=== PATIENT | female | born 1990 | race Hispanic/Latino ===

== ENCOUNTER 2017-04-26 12:16 | Emergency (ER) | payer BC ==
[2017-04-26] MEDS ORDERED: Ibuprofen 800 MG TAB ONE (12:33)
== END 2017-04-26 12:40 | disposition home or self-care (01) ==
LOC: ERS 12:16
DX: B34.9 Viral infection, unspecified (principal)
CPT/HCPCS: 99283

== ENCOUNTER 2017-12-01 08:48 | Emergency (ER) | payer BC, SELFPAY ==
[2017-12-01 09:30] LABS: #Eosinphils 0.1 thou/uL (0.0-0.7); #Lymphocytes 1.8 thou/uL (1.20-3.40); #Monocytes 0.4 thou/uL (0.11-0.59); #Neutrophils 4.8 thou/uL (1.40-6.50); %Basophils 0.4 % (0.0-1.0); %Eosinophils 1.6 % (0.0-10.0); %Lymphocytes 25.6 % (21.0-51.0); %Monocytes 5.7 % (0.0-10.0); %Neutrophils 66.8 % (42.0-75.0); Hemoglobin 14.1 g/dL (12.0-16.0); Mean Corpuscular HGB CONC 33.9 g/dL (32.0-36.0); Mean Corpuscular Hemoglobin 29.9 pg (27.0-31.0); Mean Corpuscular Volume 88.2 fL (78.0-98.0); Mean Platelet Volume 7.5 fL (7.4-10.4); Platelet Count 201 thou/uL (130-400); RBC Distribution Width 13.1 % (11.5-14.5); Red Blood Cell (RBC) Count 4.72 mill/uL (4.20-5.40); White Blood Cell (WBC) Count 7.2 thou/uL (4.8-10.8)
[2017-12-01 10:02] LABS: Bilirubin Negative (Negative); Blood, Urine Large (Negative); Clarity CLOUDY (Clear); Glucose, Urine (Dipstick) Negative (Negative); Leukocyte Small (Negative); Nitrite Negative (Negative); Protein, Urine (Dipstick) Negative (Neg-Trace); Specific Gravity, Urine 1.022 (1.002-1.036)
[2017-12-01 10:04] LABS: Bacteria/HPF 1+ HPF (None Seen); Hyaline Casts/LPF 4-6 HYALINE CAST LPF (0-3 Hyaline); Pathc Cast-AUWi Flag 1.74 (0-2.49); WBC/HPF 0-3 HPF (0-3)
[2017-12-01 10:07] LABS: Yeast-AUWi Flag 152.9 (0-25.0)
[2017-12-01 10:11] LABS: Albumin 3.8 g/dL (3.5-5.0); Anion Gap 9 mmol/L (10-20); BUN (Urea Nitrogen) 7 mg/dL (7.0-18.7); Bilirubin, Total 0.4 mg/dL (0.2-1.2); Calc. Creatinine Clearance 0 mL/min (70-130); Calcium 8.9 mg/dL (7.8-10.44); Carbon Dioxide 28 mmol/L (22-29); Chloride 107 mmol/L (98-107); Estimated GFR-MDRD 85; Globulin 1.9 g/dL (2.4-3.5); Glucose 160 mg/dL (70-105); Potassium 4.1 mmol/L (3.5-5.1); Protein, Total 5.7 g/dL (6.0-8.3); Sodium 140 mmol/L (136-145)
[2017-12-01 10:12] LABS: ALT (SGPT) 43 U/L (8-55); AST (SGOT) 27 U/L (5-34); Alkaline Phosphatase 45 U/L (40-150)
[2017-12-01 10:24] LABS: RBC/HPF 0-3 HPF (0-3); Yeast-All Forms None Seen HPF (None Seen)
--- NOTE | 2017-12-01 13:21 | ULT ---
[facility] ULTRASOUND INCLUDING TRANSABDOMINAL AND TRANSVAGINAL AND VASCULAR DUPLEX WITH COLOR AND SPECTR AL DOPPLER IMAGING: HISTORY: A 27-year-old female with a history of vaginal bleeding. Positive home test. FINDINGS: The uterus measures 8 x 4.7 x 4.9 cm, with a 1.6 cm endometrium. No intrauterine gestational sac. The right kidney measures 2.2 x 2.4 x 2.8 cm. The left kidney measures 2.1 x 2.1 x 1.8 cm. Trace free fluid in the cul-de-sac. Vascular flow is d ocumented to both ovaries. No evidence for ovarian torsion. IMPRESSION: No evidence for an intrauterine gestational sac. No evidence for an extrauterine . Follow- up serum hCGs are recommended. If there is concern in the future in regards to an early , t hen, at that point, a follow-up ultrasound study might be considered. POS: [facility]
[2017-12-01 22:20] LABS: Chlamydia by PCR Not Detected (NotDetected); GC by PCR Not Detected (NotDetected)
== END 2017-12-01 12:15 | disposition home or self-care (01) ==
LOC: ERS 08:48
DX: O20.9 Hemorrhage in early pregnancy, unspecified (principal); O23.41 Unspecified infection of urinary tract in pregnancy, first trimester; Z3A.01 Less than 8 weeks gestation of pregnancy
CPT/HCPCS: 36415; 76856; 80053; 81003; 81015; 84702; 85025; 86900; 86901; 87480; 87491; 87510; 87591; 87660

== ENCOUNTER 2018-07-11 01:46 | Emergency (ER) | payer SELFPAY | END 2018-07-11 02:27 | disposition home or self-care (01) | LOC: ERS 01:46 | DX: J06.9 Acute upper respiratory infection, unspecified (principal) | CPT/HCPCS: 99283 ==

== ENCOUNTER 2019-02-26 03:29 | Emergency (ER) | payer SELFPAY ==
--- NOTE | 2019-02-26 08:00 | RAD ---
PA AND LATERAL VIEWS CHEST: HISTORY: Cough. FINDINGS: Comparison is made with the exam of 06/22/2015. The cardiomediastinum is normal. The lungs are expanded. The bony thorax is normal. IMPRESSION: Normal exam. POS: OFF
== END 2019-02-26 04:53 | disposition home or self-care (01) ==
LOC: ERS 03:29
DX: O99.89 Other specified diseases and conditions complicating pregnancy, childbirth and the puerperium (principal); R05 Cough; R09.81 Nasal congestion; Z3A.01 Less than 8 weeks gestation of pregnancy
CPT/HCPCS: 71046; 87804; 93005

== ENCOUNTER 2019-06-10 15:40 | Inpatient (IN) | payer OTHER ==
[2019-06-10 16:24] LABS: #Eosinphils 0.1 thou/uL (0.0-0.7); #Lymphocytes 1.7 thou/uL (1.20-3.40); #Monocytes 0.5 thou/uL (0.11-0.59); #Neutrophils 7.1 thou/uL (1.40-6.50); %Basophils 0.1 % (0.0-1.0); %Eosinophils 1.1 % (0.0-10.0); %Lymphocytes 17.6 % (21.0-51.0); %Neutrophils 76.2 % (42.0-75.0); Hemoglobin 11.8 g/dL (12.0-16.0); Mean Corpuscular HGB CONC 34.2 g/dL (32.0-36.0); Mean Corpuscular Hemoglobin 28.6 pg (27.0-31.0); Mean Corpuscular Volume 83.6 fL (78.0-98.0); Red Blood Cell (RBC) Count 4.14 mill/uL (4.20-5.40); White Blood Cell (WBC) Count 9.4 thou/uL (4.8-10.8)
[2019-06-10 16:42] LABS: Mean Platelet Volume 9.5 fL (7.4-10.4); Platelet Count 189 thou/uL (130-400)
[2019-06-10 16:46] LABS: ALT (SGPT) 31 U/L (8-55); AST (SGOT) 38 U/L (5-34); Albumin 3.6 g/dL (3.5-5.0); Alkaline Phosphatase 57 U/L (40-110); Anion Gap 15 mmol/L (10-20); BUN (Urea Nitrogen) 5 mg/dL (7.0-18.7); Bilirubin, Total 0.2 mg/dL (0.2-1.2); Calc. Creatinine Clearance 0 mL/min (70-130); Carbon Dioxide 18 mmol/L (22-29); Chloride 107 mmol/L (98-107); Estimated GFR-MDRD Greater than 90; Globulin 3.1 g/dL (2.4-3.5); Glucose 171 mg/dL (70-105); Lipase 13 U/L (8-78); Potassium 4.3 mmol/L (3.5-5.1); Protein, Total 6.7 g/dL (6.0-8.3); Sodium 136 mmol/L (136-145)
[2019-06-10 17:28] LABS: Bacteria/HPF None Seen HPF (None Seen); Bilirubin Negative (Negative); Blood, Urine Negative (Negative); Clarity Turbid (Clear); Glucose, Urine (Dipstick) Normal (Negative); Leukocyte 75 Leu/uL (Negative); Nitrite Negative (Negative); Protein, Urine (Dipstick) Negative (Neg-Trace); Urobilinogen Normal mg/dL (Less than 2); WBC/HPF 0-3 HPF (0-3)
[2019-06-10] MEDS ORDERED: Zolpidem Tartrate 5 MG TAB PO PRN (18:18)
[2019-06-10] MEDS ORDERED: Ondansetron PF 4 MG/2 ML Vial IVP PRN (18:18)
[2019-06-10] MEDS ORDERED: Acetaminophen 500 MG TAB PO PRN (18:18)
[2019-06-10] MEDS ORDERED: Promethazine HCl 25 MG/ML VIAL IM PRN (18:18)
[2019-06-10] MEDS ORDERED: Labetalol HCl 100 MG/20 ML VIAL ONE (18:20)
[2019-06-10] MEDS ORDERED: hydrALAZINE 20 MG/ML VIAL SLOW IVP PRN (18:22)
[2019-06-10] MEDS ORDERED: Labetalol HCl 100 MG/20 ML VIAL SLOW IVP PRN (18:22)
[2019-06-10 19:14] LABS: Amphetamine Not Detected (NotDetected); Barbiturates Screen Not Detected (NotDetected); Benzodiazepine Screen Not Detected (NotDetected); Cocaine Metabolite Screen Not Detected (NotDetected); Medtox Control Line Valid? VALID (VALID); Medtox Reader # READER 4; Methadone Not Detected (NotDetected); Methamphetamine Not Detected (NotDetected); Opiate Screen Not Detected (NotDetected); Oxycodone Screen Not Detected (NotDetected); Phencyclidine (PCP) Not Detected (NotDetected); THC/Cannabinoid Screen Not Detected (NotDetected); Tricyclic Screen Not Detected (NotDetected)
[2019-06-10] MEDS ORDERED: NIFEdipine XL 30 MG TAB PO SCH (19:30)
--- NOTE | 2019-06-10 19:31 | PDOC.LDHP ---
Labor and Delivery H&P Chief complaint: other (Elevated BP) HPI: 28 y/o at 21w2d who presented for LUQ discomfort. She was seen in the ED and cleared for the pain, however, she was noted to have persistently elevated BPs in the 180s-190s, and was treated with Labetalol 20mg. She reports the LUQ discomfort is mostly when she coughs or reaches for her laundry but doesn't bother her otherwise. Denies FRAZIER, vision changes, or other concerns. She reports she has had some elevated BPs during this but never this high. She takes a baby aspirin. She feels like she was very emotional while in the ED, and that it was contributing to her high pressures. ROS neg for HEENT, CV, pulm, GI, , neuro, psych, skin, musculoskeletal, or constitutional symptoms other than mentioned above. OB History Details: 1 prior LTCS 1 prior SAB Current complications: hypertension, other (morbid obesity) Past Medical History: Morbid obesity CHTN Current medications: pre- vitamins, other (ASA 81mg) Previous surgical history: low tranverse CS, appendectomy Allergies/Adverse Reactions: Allergies Allergy/AdvReac Type Severity Reaction Status Date / Time No Known Allergies Allergy Verified 03/19/14 21:12 Social history: none - Physical Exam Vital signs reviewed and normal: yes General: NAD, resting Lungs: nonlabored breathing Abdomen: gravid (NTTP) - Assessment 28 y/o at 21w2d with severe range BPs in ED. No symptoms at this time. +FHTs - Plan Plan: observation in L&D -: 1. HTN - Since patient was treated for severe range BPs, she will be observed with serial BPs in L&D tonight. BP on arrival to unit 120s/50s, so will hold off on starting oral medications at this time. If BPs are elevated persistently again overnight, will start Procardia XL 30mg. 2. Mildly elevated AST - Will repeat CMP in the am. No RUQ pain at this time. 3. FHTs daily 4. Elevated glucose - repeat in am when fasting Dr. Felix notified and will resume care.
[2019-06-10 20:19] VITALS: BMI 51.6
[2019-06-11 06:29] LABS: ALT (SGPT) 29 U/L (8-55); AST (SGOT) 27 U/L (5-34); Albumin 3.5 g/dL (3.5-5.0); Alkaline Phosphatase 54 U/L (40-110); Anion Gap 14 mmol/L (10-20); BUN (Urea Nitrogen) 5 mg/dL (7.0-18.7); Bilirubin, Total 0.3 mg/dL (0.2-1.2); Calc. Creatinine Clearance 325 mL/min (70-130); Carbon Dioxide 20 mmol/L (22-29); Chloride 108 mmol/L (98-107); Estimated GFR-MDRD Greater than 90; Globulin 2.8 g/dL (2.4-3.5); Glucose 109 mg/dL (70-105); Potassium 3.9 mmol/L (3.5-5.1); Protein, Total 6.3 g/dL (6.0-8.3); Sodium 138 mmol/L (136-145)
[2019-06-11] MEDS ORDERED: NIFEdipine XL 30 MG TAB PO SCH (09:00)
[2019-06-11 18:20] VITALS: BP 118/65; TEMP 98.8
== END 2019-06-11 18:21 | disposition home health service (06) | DRG 833 ==
LOC: ERS 15:40 → L&D 19:41
PROVIDERS: ADMIT Family Medicine; ATTEND Family Medicine
DX: O10.912 Unspecified pre-existing hypertension complicating pregnancy, second trimester (principal); Z3A.21 21 weeks gestation of pregnancy; O99.212 Obesity complicating pregnancy, second trimester; E66.01 Morbid (severe) obesity due to excess calories
CPT/HCPCS: 36415; 80053; 80306; 81003; 81015; 83690; 85025; 93005; 96374

== ENCOUNTER 2019-06-14 09:20 | Outpatient (CLI) | payer OTHER ==
--- NOTE | 2019-06-14 11:43 | ULT ---
Complete obstetrical ultrasound INDICATION: Evaluate anatomy TECHNIQUE: Grayscale, M-mode Doppler and Doppler images were obtained of the abdomen and pelvis to ev aluate the patient's known . COMPARISON: None. FINDINGS: Number of gestations: Single. Presentation: Breech. Placental location: Anterior Previa: No evidence for previa. Cervical length: 4.8 cm MIRIAM: 15.3 cm. heart rate: 158 bpm. Biparietal diameter: 5.23cm, 22 weeks 0 days, Not calculated.. Head circumference: 20.44 cm, 22 weeks 4 days, Not calculated. Abdominal circumference: 17.84 cm, 22 weeks 6 days, Not calculated. Femoral length: 3.88cm, 22 weeks 4 days, Not calculated. Estimated weight: 515 g +/- 75g 1 lb. 2 oz., 80th percentile SURVEY: There is limitations in survey due to positioning. head: Normal appearing. Cerebellum: Not well seen. Cisterna magna: Not well seen Lateral ventricles: Normal appearing. 4 chamber heart: Not well seen. Stomach: Normal appearing. Kidneys: Not well seen Cord insertion: Not well seen Bladder: Normal appearing. Spine: Not well seen Lips and nose: Normal appearing. Extremities: Normal appearing. Three-vessel CORD: Not well seen The average gestational age by ultrasound is 22 weeks 4 dayswith estimated due date of October 14, 2019. The estimated dates by clinical data is 21 weeks and 6 dayswith estimated due date of October 19, 2019. IMPRESSION: 1. Single live intrauterine gestation with size and dates as above. 2. Limitations to the survey as above. Recommend a repeat obstetrical ultrasound to complete fe nury survey in 1-2 weeks.
== END 2019-06-14 09:21 | disposition home or self-care (01) ==
LOC: BICULT 09:20
PROVIDERS: ATTEND Family Medicine
DX: O09.92 Supervision of high risk pregnancy, unspecified, second trimester (principal); Z3A.22 22 weeks gestation of pregnancy
CPT/HCPCS: 76805

== ENCOUNTER 2019-07-09 08:38 | Outpatient (CLI) | payer OTHER ==
--- NOTE | 2019-07-09 09:36 | ULT ---
Obstetric sonogram follow-up HISTORY: Second trimester gestation. evaluation for anatomy. FINDINGS: Single intrauterine gestation in breech presentation. Cervix is closed and 5.3 cm. Grade 0 placenta is anterior. Amniotic fluid is within normal limits. Four-chamber heart motion at 155 bpm. No gross intracranial abnormalities are apparent. Cord insertion within normal limits. Three-vessel C ORD not well confirmed. spine and kidneys are intact as visualized. Urinary bladder is unremarkable. Measurements are as follows: Biparietal diameter 26 weeks 0 days Head circumference 25 weeks 4 days Abdominal circumference 26 weeks 5 days Femur length 26 weeks 5 days Hadlock 71 percentile. Estimated date of delivery based on today's sonogram 10/14/2019 IMPRESSION: Single intrauterine gestation. Estimated gestational age based on today's measurements 26 weeks 1 day. No anatomic abnormalities are demonstrated.
== END 2019-07-09 08:39 | disposition home or self-care (01) ==
LOC: BICULT 08:38
PROVIDERS: ATTEND Nurse Practitioner
DX: O09.92 Supervision of high risk pregnancy, unspecified, second trimester (principal); Z3A.26 26 weeks gestation of pregnancy
CPT/HCPCS: 76816

== ENCOUNTER 2019-09-06 10:38 | Day surgery (SDC) | payer OTHER ==
[2019-09-06 11:13] LABS: #Eosinphils 0.1 thou/uL (0.0-0.7); #Lymphocytes 1.5 thou/uL (1.20-3.40); #Monocytes 0.4 thou/uL (0.11-0.59); %Basophils 0.1 % (0.0-1.0); %Eosinophils 0.8 % (0.0-10.0); %Lymphocytes 16.5 % (21.0-51.0); %Monocytes 4.6 % (0.0-10.0); Hemoglobin 11.1 g/dL (12.0-16.0); Mean Corpuscular HGB CONC 33.6 g/dL (32.0-36.0); Mean Corpuscular Hemoglobin 28.2 pg (27.0-31.0); Mean Platelet Volume 7.9 fL (7.4-10.4); Platelet Count 239 thou/uL (130-400); RBC Distribution Width 13.7 % (11.5-14.5); Red Blood Cell (RBC) Count 3.95 mill/uL (4.20-5.40)
[2019-09-06 11:26] LABS: Hemoglobin A1c 6.7 % (4.0-6.0)
[2019-09-06 11:34] LABS: ALT (SGPT) 13 U/L (8-55); AST (SGOT) 14 U/L (5-34); Albumin 3.5 g/dL (3.5-5.0); Alkaline Phosphatase 88 U/L (40-110); Anion Gap 13 mmol/L (10-20); BUN (Urea Nitrogen) 5 mg/dL (7.0-18.7); Bilirubin, Total 0.2 mg/dL (0.2-1.2); Calc. Creatinine Clearance 0 mL/min (70-130); Calcium 9.4 mg/dL (7.8-10.44); Carbon Dioxide 20 mmol/L (22-29); Chloride 109 mmol/L (98-107); Estimated GFR-MDRD Greater than 90; Globulin 2.6 g/dL (2.4-3.5); Glucose 209 mg/dL (70-105); Potassium 3.9 mmol/L (3.5-5.1); Protein, Total 6.1 g/dL (6.0-8.3); Sodium 138 mmol/L (136-145)
[2019-09-06] MEDS ORDERED: Insulin Regular 300 UNITS/3 ML VIAL ONE (12:00)
[2019-09-06 12:15] VITALS: BMI 52.6
--- NOTE | 2019-09-06 13:37 | ULT ---
BIOPHYSICAL PROFILE: Date: 09/06/2019 INDICATION: Abnormal nonstress test. FINDINGS/IMPRESSION: Tone: 2 Breathin Movement: 2 Amniotic Fluid: 2 Total Score: 8/8 Presentation: Vertex. Placenta: Anterior. heart rate: 160 bpm. MIRIAM: 11.1 cm. POS: [facility]
[2019-09-06] MEDS ORDERED: Betamet Acet/Betamet Na Ph 30 MG/5 ML VIAL ONE (16:09)
[2019-09-07] MEDS ORDERED: Betamet Acet/Betamet Na Ph 30 MG/5 ML VIAL IM SCH (16:00)
== END 2019-09-06 16:30 | disposition home health service (06) ==
LOC: L&D/OP 10:38
PROVIDERS: ATTEND Family Medicine
DX: Z01.89 Encounter for other specified special examinations (principal)
CPT/HCPCS: 36416; 76819; 80053; 82570; 83036; 84156; 85025; 96360; 96361; 96372; 99285; J0702; J1815

== ENCOUNTER 2019-09-13 11:35 | Day surgery (SDC) | payer OTHER ==
[2019-09-13 12:13] VITALS: BP 127/66; BMI 51.7
[2019-09-13] MEDS ORDERED: hydrALAZINE 20 MG/ML VIAL SLOW IVP PRN (13:29)
--- NOTE | 2019-09-13 13:32 | ULT ---
Sonographic biophysical profile exam HISTORY: Preeclampsia. FINDINGS: Single intrauterine gestation in cephalic presentation. Good movement, tone, and breathing movements were demonstrated at sonography. MIRIAM 11.4. Placenta is anterior. No evidence of previa. IMPRESSION : Sonographic biophysical profile score 8/8.
--- NOTE | 2019-09-13 14:03 | PRG ---
DATE OF SERVICE: 09/13/2019 TIME OF SERVICE: 1325 hours. PRESENTING COMPLAINT: Nonreactive nonstress test at 35 weeks at doctor's office. The patient is sent for further evaluation. HISTORY OF PRESENT ILLNESS: The patient was sent over apparently for a biophysical profile and a prolonged nonstress test. This does not communicate directly with the OB ED physician. The patient's history reflects 35 weeks' gestation, prior section x1 with an EDC of 10/18/2019. She has morbid obesity and diabetes that by the patient's description is White classification A1. She also has a history of chronic hypertension and is on baby aspirin 81 mg per day. She reports good glycemic control. LINE PRODUCER HISTORY: As noted. MEDICAL HISTORY: Obesity. SURGICAL HISTORY: . ALLERGIES: DENIES. MEDICATIONS: 1. vitamins. 2. Baby aspirin. SOCIAL HISTORY: Denies tobacco, alcohol, or IV drug abuse. FAMILY HISTORY: Noncontributory. REVIEW OF SYSTEMS: Noncontributory. PHYSICAL EXAMINATION: GENERAL: Morbidly obese, female, resting comfortably. VITAL SIGNS: Blood pressure 128/82, pulse 85, respirations 18, temperature 97.8. HEENT: Within normal limits. LUNGS: Clear to auscultation bilaterally. HEART: Regular rhythm. ABDOMEN: Soft and nontender with a fundal height of 36. Vulva without lesions. Vaginal exam deferred. EXTREMITIES: Without clubbing, cyanosis, or edema. Prolonged monitoring was carried out. Category 1 heart rate tracing with reactive NST was noted within the first 30 minutes of the patient's presentation to Labor and Delivery. No decelerations were noted. Baseline was 140s to 150s. Ultrasound BPP was obtained. Official report is not read yet. However, BPP was 8/8 with an MIRIAM of 11.4. heart rate of 153 was noted, anterior placenta, and no EFW stated. IMPRESSION: Apparent White classification A1 gestational diabetic with morbid obesity; prior delivery; and a history of chronic hypertension, not on medications; on baby aspirin; with a reactive NST and a normal biophysical profile. PLAN: Discharge home. Keep scheduled b.i.d. weekly antepartum testing. Follow up with Dr. Felix. Job ID: [id number]
== END 2019-09-13 13:30 | disposition home health service (06) ==
LOC: L&D/OP 11:35
PROVIDERS: ATTEND Family Medicine
DX: O11.3 Pre-existing hypertension with pre-eclampsia, third trimester (principal); O99.213 Obesity complicating pregnancy, third trimester; E66.01 Morbid (severe) obesity due to excess calories; O34.219 Maternal care for unspecified type scar from previous cesarean delivery; Z3A.35 35 weeks gestation of pregnancy; Z79.82 Long term (current) use of aspirin
CPT/HCPCS: 59025; 76819; 99282

== ENCOUNTER 2019-09-27 10:01 | Day surgery (SDC) | payer OTHER ==
[2019-09-27 11:08] VITALS: BMI 51.7
[2019-09-27] MEDS ORDERED: hydrALAZINE 20 MG/ML VIAL SLOW IVP PRN (12:07)
--- NOTE | 2019-09-27 13:19 | ULT ---
ULTRASOUND BIOPHYSICAL PROFILE: HISTORY: Preeclampsia and gestational diabetes. FINDINGS: A single live intrauterine gestation is seen with a heart rate of 153 b.p.m. MIRIAM measures 13.5 cm. Placenta is anterior without placenta previa. There is good movement, tone, breathing, and amniotic fluid. IMPRESSION: Ultrasound biophysical profile score is an 8 out of 8. POS: [facility]
--- NOTE | 2019-09-28 08:38 | PRG ---
DATE OF SERVICE: 09/27/2019 TIME OF SERVICE: 1200 hours. HISTORY OF PRESENT ILLNESS: Ms. Bee is a 29-year-old, 2, para 1, with EDC of 10/17, who sees Dr. Felix. She is at 36 weeks' gestation, was seen in the office this morning, had a nonreactive NST, was sent over for further evaluation. The patient is receiving NSTs for diet-controlled gestational diabetes. She has a previous . She is blood type A positive, antibody negative. Pap negative. Rubella immune. VDRL nonreactive. Hepatitis B, GC, chlamydia negative. MEDICAL HISTORY: Obesity. PAST SURGICAL HISTORY: and appendectomy. ALLERGIES: DENIES. MEDICATIONS: None. SOCIAL HISTORY: Denies tobacco, alcohol, or IV drug use. FAMILY HISTORY: Noncontributory. REVIEW OF SYSTEMS: Noncontributory. PHYSICAL EXAMINATION: GENERAL: female, in no acute distress. VITAL SIGNS: Blood pressure 132/86, pulse 85, respirations 18, temperature 98.2. HEENT: Within normal limits. LUNGS: Clear to auscultation bilaterally. HEART: Regular rate and rhythm. ABDOMEN: Soft and nontender without rebound or guarding. No palpable contractions. : Vulva was without lesions. Vaginal exam deferred. EXTREMITIES: No clubbing, cyanosis, or edema. Prolonged monitoring is carried out, which revealed category 1 tracing with a baseline of 140s to 150s, positive accelerations, no decelerations, occasional uterine irritability. BPP was performed, official report not back, however, it was 8/8 scoring with a 13.5 cm MIRIAM, 153 heart tones, anterior placenta, cephalic presentation. IMPRESSION: Diet-controlled diabetes, third trimester with reassuring monitoring and biophysical profile. PLAN: Discharge home. Keep scheduled followup and scheduled repeat section with Dr. Felix. Job ID: [id number]
== END 2019-09-27 12:25 | disposition home or self-care (01) ==
LOC: L&D/OP 10:01
PROVIDERS: ATTEND Family Medicine
DX: O24.410 Gestational diabetes mellitus in pregnancy, diet controlled (principal); O99.213 Obesity complicating pregnancy, third trimester; E66.9 Obesity, unspecified; O34.219 Maternal care for unspecified type scar from previous cesarean delivery; Z3A.36 36 weeks gestation of pregnancy
CPT/HCPCS: 76819; 99282

== ENCOUNTER 2019-09-29 04:54 | Outpatient (CLI) | payer OTHER ==
[2019-09-29 17:14] LABS: SARS-CoV-2 MS2 Positive; SARS-CoV-2 N Gene Negative; SARS-CoV-2 S Gene Negative; SARS-CoV-2 orf1ab Negative
== END 2019-09-29 04:55 | disposition home or self-care (01) ==
LOC: ERS 04:54
PROVIDERS: ATTEND Family Medicine
DX: Z11.59 Encounter for screening for other viral diseases (principal)
CPT/HCPCS: 87635; U0003

== ENCOUNTER 2019-10-01 09:21 | Inpatient (IN) | payer OTHER ==
[2019-10-01] MEDS ORDERED: Ondansetron PF 4 MG/2 ML Vial IVP PRN ×3 (09:46→15:25)
[2019-10-01] MEDS ORDERED: hydrALAZINE 20 MG/ML VIAL SLOW IVP PRN ×2 (09:46→15:25)
[2019-10-01] MEDS ORDERED: Promethazine HCl 25 MG/ML VIAL IM PRN ×3 (09:46→15:25)
[2019-10-01] MEDS ORDERED: Azithromycin 500 MG in Sodium Chloride 0.9% 250 ML 250 ML IVPB SCH (09:46)
[2019-10-01] MEDS: Lactated Ringer's 1,000 ML IV SCH ×2 (09:53→10:50)
[2019-10-01 10:16] VITALS: BMI 51.7
[2019-10-01 10:20] LABS: Hemoglobin 11.4 g/dL (12.0-16.0); Mean Corpuscular HGB CONC 31.3 g/dL (32.0-36.0); Mean Corpuscular Hemoglobin 26.5 pg (27.0-31.0); Mean Corpuscular Volume 84.6 fL (78.0-98.0); Mean Platelet Volume 8.7 fL (7.4-10.4); Platelet Count 240 thou/uL (130-400); RBC Distribution Width 14.6 % (11.5-14.5); White Blood Cell (WBC) Count 8.2 thou/uL (4.8-10.8)
[2019-10-01] MEDS ORDERED: CEFAZOLIN 3 GM in Sodium Chloride 0.9% 100 ML IVPB SCH (10:30)
[2019-10-01 11:06] LABS: Syphilis Antibody Nonreactive (Nonreactive); Syphilis Antibody Index 0.02 S/CO (<1.00 Non-Reactive)
[2019-10-01 11:08] LABS: HBSAg Index 0.09 S/CO (0-0.99); Hep B Surf Ag Non-Reactive S/CO (NonReactive)
[2019-10-01] MEDS ORDERED: Oxytocin 10 UNITS/ML VIAL ONE ×2 (11:43→13:05)
[2019-10-01] MEDS ORDERED: Ondansetron PF 4 MG/2 ML Vial ONE (11:44)
[2019-10-01] MEDS ORDERED: MORPHINE 5 MG/10 ML PF VIAL ONE (11:45)
[2019-10-01] MEDS ORDERED: Famotidine/PF 20 mg/2ml Vial SLOW IVP SCH (12:00)
[2019-10-01] MEDS ORDERED: PHENYLEPHRINE-NS 100 MCG/ML 10 ML SYRINGE ONE (12:27)
[2019-10-01] MEDS ORDERED: Promethazine HCl 25 MG/ML VIAL ONE (12:42)
[2019-10-01] MEDS ORDERED: L&D-Morphine 4 MG/ML VIAL SLOW IVP PRN (12:48)
[2019-10-01] MEDS ORDERED: Ketorolac Tromethamine 30 MG/ML VIAL IVP PRN (12:48)
[2019-10-01] MEDS ORDERED: Meperidine HCl/PF 25 MG/ML VIAL SLOW IVP PRN (12:48)
[2019-10-01] MEDS ORDERED: Naloxone HCl 0.4 mg/ml Vial IV PRN (12:48)
[2019-10-01] MEDS ORDERED: Ondansetron HCl/PF 4 MG/2 ML Vial IVP PRN (12:48)
[2019-10-01] MEDS ORDERED: Promethazine HCl 25 MG SUPP PR PRN (12:48)
[2019-10-01] MEDS ORDERED: Naloxone HCl 0.4 mg/ml Vial IVP PRN ×2 (12:48)
[2019-10-01] MEDS ORDERED: diphenhydrAMINE 50 MG/ML VIAL IVP PRN (12:48)
[2019-10-01] MEDS ORDERED: HYDROmorphone 2 MG/ML VIAL SLOW IVP PRN (12:48)
[2019-10-01] MEDS ORDERED: Ketorolac Tromethamine 30 MG/ML VIAL IVP SCH ×2 (13:00→18:00)
[2019-10-01] MEDS ORDERED: Communication Order-Pharmacy FS SCH (13:00)
[2019-10-01] MEDS ORDERED: Ketorolac Tromethamine 30 MG/ML VIAL ONE (15:01)
[2019-10-01] MEDS ORDERED: NS / Oxytocin 40 units/1000ml 1,000 ML IV SCH (15:25)
[2019-10-01] MEDS ORDERED: Simethicone Chewable 80 MG TAB PO PRN (15:25)
[2019-10-01] MEDS ORDERED: diphenhydrAMINE 25 MG CAP PO PRN (15:25)
[2019-10-01] MEDS ORDERED: Lanolin Ointment 7 GM TUBE TOP PRN (15:25)
[2019-10-01] MEDS ORDERED: Adacel (T-DAP) 0.5 ML SYRINGE IM ONE (15:25)
[2019-10-01] MEDS ORDERED: Bisacodyl 10 MG SUPP PR PRN (15:25)
[2019-10-01] MEDS ORDERED: Acetaminophen 325 MG TAB PO PRN (15:25)
[2019-10-01] MEDS: Ferrous Sulfate 325 MG TAB PO SCH (22:02)
[2019-10-01] MEDS: Ketorolac Tromethamine 30 MG/ML VIAL IVP SCH (22:15)
[2019-10-01] MEDS: Docusate Calcium (SURFAK) 240 MG CAP PO SCH (22:15)
[2019-10-02] MEDS ORDERED: HYDROcodone/Acetaminophen 5/325 mg Tablet PO PRN (01:00)
[2019-10-02] MEDS ORDERED: Meperidine HCl/PF 25 MG/ML VIAL IM PRN (01:00)
[2019-10-02] MEDS: Lactated Ringer's 1,000 ML IV SCH ×3 (04:07→18:35)
[2019-10-02] MEDS: Ketorolac Tromethamine 30 MG/ML VIAL IVP SCH ×2 (04:57→08:14)
[2019-10-02] MEDS: Ibuprofen 800 MG TAB PO SCH ×3 (06:17→21:48)
[2019-10-02 06:53] LABS: Hemoglobin 9.9 g/dL (12.0-16.0); Mean Corpuscular Hemoglobin 27.3 pg (27.0-31.0); Mean Corpuscular Volume 85.2 fL (78.0-98.0); Mean Platelet Volume 8.2 fL (7.4-10.4); Platelet Count 188 thou/uL (130-400); RBC Distribution Width 14.4 % (11.5-14.5); Red Blood Cell (RBC) Count 3.63 mill/uL (4.20-5.40); White Blood Cell (WBC) Count 7.4 thou/uL (4.8-10.8)
[2019-10-02] MEDS: Docusate Calcium (SURFAK) 240 MG CAP PO SCH ×2 (08:17→21:48)
[2019-10-02] MEDS: Ferrous Sulfate 325 MG TAB PO SCH ×2 (08:17→21:48)
[2019-10-02] MEDS: HYDROcodone/Acetaminophen 5/325 mg Tablet PO PRN ×3 (08:18→16:01)
[2019-10-03] MEDS: HYDROcodone/Acetaminophen 5/325 mg Tablet PO PRN (02:27)
[2019-10-03] MEDS: Lactated Ringer's 1,000 ML IV SCH ×3 (02:30→16:54)
[2019-10-03] MEDS: Ibuprofen 800 MG TAB PO SCH ×3 (05:24→21:22)
[2019-10-03] MEDS: Ferrous Sulfate 325 MG TAB PO SCH ×2 (08:39→21:23)
[2019-10-03] MEDS: Docusate Calcium (SURFAK) 240 MG CAP PO SCH ×2 (08:39→21:22)
[2019-10-04] MEDS: Ibuprofen 800 MG TAB PO SCH ×3 (05:48→23:36)
[2019-10-04] MEDS: Lactated Ringer's 1,000 ML IV SCH ×3 (06:10→13:28)
[2019-10-04] MEDS: Docusate Calcium (SURFAK) 240 MG CAP PO SCH ×2 (07:17→23:36)
[2019-10-04] MEDS: HYDROcodone/Acetaminophen 5/325 mg Tablet PO PRN (07:18)
[2019-10-04] MEDS: Ferrous Sulfate 325 MG TAB PO SCH ×2 (07:18→23:36)
[2019-10-04] MEDS ORDERED: cloNIDine 0.1 MG TAB PO PRN (08:48)
[2019-10-05] MEDS: Lactated Ringer's 1,000 ML IV SCH ×2 (03:17→13:35)
[2019-10-05] MEDS: Ferrous Sulfate 325 MG TAB PO SCH (07:27)
[2019-10-05] MEDS: Docusate Calcium (SURFAK) 240 MG CAP PO SCH (07:28)
[2019-10-05] MEDS: Ibuprofen 800 MG TAB PO SCH ×2 (07:28→13:35)
[2019-10-05] MEDS ORDERED: Losartan/Hydrochlorothiazide 100 mg/25 mg Tablet PO SCH (09:00)
[2019-10-05 11:48] VITALS: BP 134/63; TEMP 98.6
--- NOTE | 2019-10-09 08:35 | PDOC.OPDEL ---
OB Operative/Delivery Note Delivery Dr/Surgeon: Isidro Assist: Juliocesar PGY-3 Pre-Delivery Diagnosis: scheduled section Procedure/Post Delivery Dx: repeat low transverse CS Weeks gestation: 37 Anesthesia: spinal - Findings A Sex: male Weight: 4.345 kg - 1 min: 7 - 5 min: 8 - Additional Findings/Plan Placenta delivered: manual removal findings: low transverse hysterotomy without extension Estimated blood loss: 709 Compilations/Other Findings: Indications: The patient is a 29 year old emale at 37.4 weeks gestation who presents for a repeat scheduled 2/2 gestational diabetes and preeclampsia. Procedure in Detail: After risks, benefits, and alternatives were explained to the patient, she gave informed consent. Pre-operative antibiotics included Cefazolin 2 gram IV. The patient was taken to the operating room and spinal anesthesia was initiated. She was placed in the supine position with a left tilt and prepped and draped in usual sterile fashion. A Pfannenstiel incision was made with a scalpel and carried down to the level of the fascia which was sharply nicked. The fascial cut was extended bilaterally with curved Cedillo sissors. The inferior and superior edges of the cut fascial edges were elevated with Jim clamps and the underlying rectus muscles were sharply and bluntly dissected free. The recti were divided digitally and retracted manually. The peritoneum was entered bluntly and retracted manually. Bladder blade was placed. A low transverse score was made with the scalpel and the uterus was entered in the midline with the scalpel. Clear fluid was seen. The hysterotomy was extended manually. The infant was noted to be vertex and was easily delivered by fundal pressure. Mouth and nares were bulb suctioned. Cord clamped and cut and grossly normal male infant was handed to waiting nurse. Cord blood was obtained. Placenta was manually extracted, found to be intact with 3 vessel cord and discarded. The uterus was externalized and the endometrium was curetted with a dry lap. The bladder blade was replaced and the uterus was closed with a running locking 0- vicryl suture. It was noted that pt had multiple pinpoint adhesions on the front and back of the uterus. They were noted to be oozing. We used some bovie cautery. But they still continued to ooze. Thus at this time we used multiple units of brad powder. 4 in total were used mainly on the posterior. Following this hemostasis was noted. The abdomen was irrigated with saline and suctioned free of clots. The uterus was internalized and the hysterotomy was again noted to be hemostatic. Seprafilm was then placed over the hysterotomy. The left muslce belly was noted to be bleeding and was made hemostatic with a 3-0 vicryl suture. The peritoneum was then closed with a 3-0 vicryl suture. The fascia was closed with a running non-locking 0-PDS suture. The subcutaneous tissue was irrigated and closed with 3 3-0 vicryl interupted sutures. The skin was approximated with cecilio and a wound vac was placed. All counts were correct. The patient tolerated the procedure well and was taken to the recovery room in stable condition. Estimated Blood Loss: 750 ml Complications: None Specimens: Cord blood sent to lab for blood type Grossly normal placenta with 3 vessel cord sent for path Drains: Joyner to gravity draining clear urine Post delivery plan: routine recovery
== END 2019-10-05 17:37 | disposition home or self-care (01) | DRG 788 ==
LOC: L&D 09:21 → 3SW 15:54
PROVIDERS: ADMIT Family Medicine; ATTEND Family Medicine
PROC: 10D00Z1 Extraction of Products of Conception, Low, Open Approach (ICD-10-PCS; principal; 2019-10-01)
DX: O34.211 Maternal care for low transverse scar from previous cesarean delivery (principal); O14.94 Unspecified pre-eclampsia, complicating childbirth; Z37.0 Single live birth; O99.214 Obesity complicating childbirth; E66.01 Morbid (severe) obesity due to excess calories; O24.420 Gestational diabetes mellitus in childbirth, diet controlled
CPT/HCPCS: 36415; 36416; 51702; 85027; 86780; 86850; 86900; 86901; 87340; 88307; J0456; J0690; J1885; J2274; J2405; J2550; J2590; J3490; J7050; S0028

== ENCOUNTER 2020-06-12 11:29 | Emergency (ER) | payer OTHER ==
--- NOTE | 2020-06-12 12:51 | RAD ---
EXAM: Two views chest PROVIDED CLINICAL HISTORY: Chest pain COMPARISON: 02/26/2019 FINDINGS: Cardiac and mediastinal silhouette appears within normal limits. Lungs appear free of significant opa city. No pleural fluid or pneumothorax apparent. IMPRESSION: No evidence for an acute cardiopulmonary process.
[2020-06-12] MEDS ORDERED: Ondansetron PF 4 MG/2 ML Vial ONE (13:43)
[2020-06-12] MEDS ORDERED: Morphine 4 MG/ML VIAL ONE (13:43)
[2020-06-12] MEDS ORDERED: Ketorolac Tromethamine 30 MG/ML VIAL ONE (13:45)
[2020-06-12 13:53] LABS: #Eosinphils 0.1 thou/uL (0.0-0.7); #Lymphocytes 2.1 thou/uL (1.20-3.40); #Monocytes 0.4 thou/uL (0.11-0.59); #Neutrophils 7.2 thou/uL (1.40-6.50); %Basophils 0.3 % (0.0-1.0); %Eosinophils 0.9 % (0.0-10.0); %Lymphocytes 20.9 % (21.0-51.0); %Monocytes 4.4 % (0.0-10.0); %Neutrophils 73.5 % (42.0-75.0); Hemoglobin 13.5 g/dL (12.0-16.0); Mean Corpuscular HGB CONC 32.5 g/dL (32.0-36.0); Mean Corpuscular Hemoglobin 26.5 pg (27.0-31.0); Mean Corpuscular Volume 81.6 fL (78.0-98.0); Mean Platelet Volume 8.8 fL (7.4-10.4); Platelet Count 285 thou/uL (130-400); RBC Distribution Width 14.5 % (11.5-14.5); White Blood Cell (WBC) Count 9.8 thou/uL (4.8-10.8)
[2020-06-12 14:01] LABS: BHCG - Serum Negative (NEGATIVE); Pregs Control Background? CLEAR/WHITE (CLR/WHITE); Pregs Control Bar Appear? YES (CONTROL BAR)
[2020-06-12 14:14] LABS: ALT (SGPT) 23 U/L (8-55); AST (SGOT) 14 U/L (5-34); Albumin 4.5 g/dL (3.5-5.0); Alkaline Phosphatase 72 U/L (40-110); Anion Gap 14 mmol/L (10-20); BUN (Urea Nitrogen) 10 mg/dL (7.0-18.7); Bilirubin, Total 0.4 mg/dL (0.2-1.2); Calc. Creatinine Clearance 0 mL/min (70-130); Calcium 9.1 mg/dL (7.8-10.44); Carbon Dioxide 23 mmol/L (22-29); Chloride 107 mmol/L (98-107); Globulin 3.1 g/dL (2.4-3.5); Glucose 115 mg/dL (70-105); Potassium 4.1 mmol/L (3.5-5.1); Protein, Total 7.6 g/dL (6.0-8.3); Sodium 140 mmol/L (136-145)
--- NOTE | 2020-06-12 14:39 | CT ---
Exam: CT angiogram of the chest HISTORY: Left posterior intercostal pain, x2 weeks. Pain worsens upon deep inspiration. COMPARISON: None TECHNIQUE: CT angiogram of the chest is performed in the axial plane. Three-dimensional reformatted i mages are submitted for interpretation FINDINGS: Mediastinum: No mass, lymphadenopathy or hematoma. HEART: Normal size. No significant pericardial fluid. Aorta: No aneurysm or dissection Upper solid abdominal viscera: No abnormality enhancement. Trachea and central bronchi: Patent Pleural spaces: No effusion Lung parenchyma: No masses or consolidation. Pneumothorax: None Osseous structures: No lytic or blastic lesions Pulmonary arteries: Adequate contrast opacification pulmonary arterial system to the level of lobar a rteries. Evaluation the segmental and subsegmental arteries is limited due to timing of contrast bolus. No filling defect to suggest pulmonary embolism IMPRESSION:No evidence of pulmonary artery embolism to the level of the lobar arteries.
[2020-06-12 14:42] LABS: Bacteria/HPF None Seen HPF (None Seen); Bilirubin Negative (Negative); Blood, Urine 1+ (Negative); Clarity Clear (Clear); Glucose, Urine (Dipstick) Normal (Negative); Ketone, Urine Negative (Negative); Leukocyte Negative Leu/uL (Negative); Nitrite Negative (Negative); Protein, Urine (Dipstick) 10 mg/dL (Neg-Trace); RBC/HPF 0-3 HPF (0-3); Specific Gravity, Urine 1.027 (1.002-1.036); Squamous Epithelial 0-3 HPF (0-3); Urobilinogen Normal mg/dL (Less than 2); WBC/HPF 0-3 HPF (0-3); pH, Urine 5.5 (5.0-9.0)
== END 2020-06-12 15:56 | disposition home or self-care (01) ==
LOC: ERS 11:29
DX: M54.6 Pain in thoracic spine (principal)
CPT/HCPCS: 71046; 71275; 80053; 81003; 81015; 84484; 84703; 85025; 93005; 96374; 96375; J1885; J2270; J2405

== ENCOUNTER 2021-12-14 07:21 | Emergency (ER) | payer OTHER, SELFPAY ==
[2021-12-14 08:55] LABS: #Basophils 0.1 thou/uL (0.0-0.2); #Eosinphils 0.1 thou/uL (0.0-0.7); #Lymphocytes 1.9 thou/uL (1.20-3.40); #Monocytes 0.4 thou/uL (0.11-0.59); #Neutrophils 5.6 thou/uL (1.40-6.50); %Basophils 0.9 % (0.0-1.0); %Eosinophils 1.2 % (0.0-10.0); %Lymphocytes 23.4 % (21.0-51.0); %Monocytes 5.1 % (0.0-10.0); %Neutrophils 69.3 % (42.0-75.0); Hemoglobin 13.4 g/dL (12.0-16.0); Mean Corpuscular HGB CONC 31.4 g/dL (32.0-36.0); Mean Corpuscular Hemoglobin 27.5 pg (27.0-31.0); Mean Corpuscular Volume 87.6 fL (78.0-98.0); Mean Platelet Volume 8.6 fL (7.4-10.4); Platelet Count 235 thou/uL (130-400); RBC Distribution Width 13.9 % (11.5-14.5); Red Blood Cell (RBC) Count 4.88 mill/uL (4.20-5.40)
[2021-12-14 09:20] LABS: ALT (SGPT) 73 U/L (8-55); AST (SGOT) 48 U/L (5-34); Alkaline Phosphatase 62 U/L (40-110); Anion Gap 15 mmol/L (10-20); BUN (Urea Nitrogen) 9 mg/dL (7.0-18.7); Bilirubin, Total 0.4 mg/dL (0.2-1.2); Calc. Creatinine Clearance 0 mL/min (70-130); Calcium 9.1 mg/dL (7.8-10.44); Carbon Dioxide 24 mmol/L (22-29); Chloride 106 mmol/L (98-107); Estimated GFR 117; Globulin 2.8 g/dL (2.4-3.5); Glucose 147 mg/dL (70-105); Potassium 4.1 mmol/L (3.5-5.1); Protein, Total 6.8 g/dL (6.0-8.3); Sodium 141 mmol/L (136-145)
== END 2021-12-14 10:40 | disposition home or self-care (01) ==
LOC: ERS 07:21
DX: M54.12 Radiculopathy, cervical region (principal); R74.01 Elevation of levels of liver transaminase levels
CPT/HCPCS: 36415; 80053; 85025; 93005

== ENCOUNTER 2022-02-02 06:28 | Emergency (ER) | payer OTHER | END 2022-02-02 07:48 | disposition home or self-care (01) | LOC: ERS 06:28 | DX: H60.91 Unspecified otitis externa, right ear (principal) | CPT/HCPCS: 99282 ==

== ENCOUNTER 2022-07-10 16:10 | Emergency (ER) | payer OTHER | END 2022-07-10 17:05 | disposition home or self-care (01) | LOC: ERS 16:10 | DX: J02.9 Acute pharyngitis, unspecified (principal) | CPT/HCPCS: 99283 ==

== ENCOUNTER 2023-11-03 19:11 | Emergency (ER) | payer OTHER ==
[2023-11-03 20:17] LABS: #Basophils Less than 0.03 10x3/uL (0.0-0.2); %Basophils 0.2 % (0.0-1.0); %Eosinophils 0.6 % (0.0-10.0); %Lymphocytes 13.1 % (21.0-51.0); %Neutrophils 78.7 % (42.0-75.0); Hematocrit 34.5 % (36.0-47.0); Hemoglobin 11.2 g/dL (12.0-16.0); Mean Corpuscular HGB CONC 32.5 g/dL (32.0-36.0); Mean Corpuscular Hemoglobin 27.7 pg (27.0-31.0); Mean Corpuscular Volume 85.4 fL (78.0-98.0); Mean Platelet Volume 9.7 fL (7.4-10.4); Platelet Count 163 10x3/uL (130-400); RBC Distribution Width 13.9 % (11.5-14.5); Red Blood Cell (RBC) Count 4.04 mill/uL (4.20-5.40)
[2023-11-03 20:32] LABS: Bacteria/HPF 2+ HPF (None Seen); Bilirubin Negative (Negative); Blood, Urine Negative (Negative); CAUTI Indications for Culture Pelvic or flank pain; Clarity Turbid (Clear); Glucose, Urine (Dipstick) Normal (Negative); Ketone, Urine Negative (Negative); Leukocyte 500 Leu/uL (Negative); Mucous/LPF Rare LPF (<2+); Nitrite Negative (Negative); Protein, Urine (Dipstick) 10 mg/dL (Neg-Trace); RBC/HPF 0-3 HPF (0-3); Specific Gravity, Urine 1.026 (1.002-1.036); pH, Urine 6.5 (5.0-9.0)
[2023-11-03 20:34] LABS: Urine Culture Reflex Yes Yes
[2023-11-03 20:39] LABS: ALT (SGPT) 21 U/L (8-55); AST (SGOT) 17 U/L (5-34); Albumin 2.9 g/dL (3.5-5.0); Alkaline Phosphatase 52 U/L (40-110); Anion Gap 14 mmol/L (10-20); BUN (Urea Nitrogen) 6 mg/dL (7.0-18.7); Bilirubin, Total 0.3 mg/dL (0.2-1.2); Calc. Creatinine Clearance 0 mL/min (70-130); Calcium 9.2 mg/dL (7.8-10.44); Carbon Dioxide 19 mmol/L (22-29); Chloride 109 mmol/L (98-107); Estimated GFR 123; Globulin 3.5 g/dL (2.4-3.5); Glucose 106 mg/dL (70-105); Lipase 12 U/L (8-78); Potassium 3.8 mmol/L (3.5-5.1); Protein, Total 6.4 g/dL (6.0-8.3); Sodium 138 mmol/L (136-145)
[2023-11-03] MEDS ORDERED: Acetaminophen 500 MG TAB ONE ×2 (22:53→22:58)
[2023-11-04 00:24] LABS: Influenza A by NAA Not Detected (NotDetected); Influenza B by NAA Not Detected (NotDetected); SARS-CoV-2 NAA Rapid Test Not Detected (NotDetected)
[2023-11-04] MEDS ORDERED: Clindamycin/D5W 600 mg/50 ml Premix Bag ONE (01:39)
== END 2023-11-04 03:15 | disposition short-term general hospital (02) ==
LOC: ERS 19:11
DX: O23.42 Unspecified infection of urinary tract in pregnancy, second trimester (principal); N39.0 Urinary tract infection, site not specified; O24.419 Gestational diabetes mellitus in pregnancy, unspecified control; O13.9 Gestational [pregnancy-induced] hypertension without significant proteinuria, unspecified trimester; Z3A.19 19 weeks gestation of pregnancy; Z79.84 Long term (current) use of oral hypoglycemic drugs; Z79.899 Other long term (current) drug therapy
CPT/HCPCS: 36415; 76805; 80053; 81001; 83605; 83690; 85025; 87040; 87086; J3490

== ENCOUNTER 2025-03-10 19:12 | Emergency (ER) | payer OTHER | END 2025-03-10 20:42 | disposition home or self-care (01) | LOC: ERS 19:12 | DX: S80.12XA Contusion of left lower leg, initial encounter (principal); E11.9 Type 2 diabetes mellitus without complications; I10 Essential (primary) hypertension; X58.XXXA Exposure to other specified factors, initial encounter | CPT/HCPCS: 99283 ==